=== PATIENT | male | born 1975 | race Caucasian/White ===

== ENCOUNTER 2020-07-01 00:49 | Emergency (ER) | payer OTHER ==
[~2020-07-01] VITALS: Ht 177.8 cm; Wt 72.6 kg
--- NOTE | 2020-07-01 01:09 | NUR ---
Dr. Heaton at bedside for MSE.
--- NOTE | 2020-07-01 01:09 | NUR ---
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
--- NOTE | 2020-07-01 01:35 | NUR ---
Patient discharged to home in stable condition. Written and verbal after care instructions given. Patient verbalizes understanding of instructions. Stressed follow up or return to ER for worsening s/s. Pt ambulated out of the ER with steady gait. All belongings with pt.
[2020-07-01 01:36] VITALS: BP 132/95
== END 2020-07-01 01:36 | disposition home or self-care (01) ==
LOC: ER 00:51
DX: R45.851 Suicidal ideations (principal); Z59.0 Homelessness; R03.0 Elevated blood-pressure reading, without diagnosis of hypertension; Z88.1 Allergy status to other antibiotic agents; Z88.0 Allergy status to penicillin; Z88.2 Allergy status to sulfonamides; Z98.890 Other specified postprocedural states
CPT/HCPCS: A4663